=== PATIENT | male | born 1990 | race Caucasian/White ===

== ENCOUNTER 2018-07-10 13:49 | Emergency (ER) | payer OTHER ==
[~2018-07-10] VITALS: Ht 180.3 cm; Wt 99.8 kg
[2018-07-10] MEDS ORDERED: TRAMADOL 50 MG50 MG PO (14:53)
[2018-07-10] MEDS ORDERED: NAPROSYN500 MG PO (14:53)
[2018-07-10 15:13] VITALS: BP 127/67
== END 2018-07-10 15:14 | disposition home or self-care (01) ==
LOC: ER 13:49
DX: S90.32XA Contusion of left foot, initial encounter (principal); Z87.891 Personal history of nicotine dependence; Z88.1 Allergy status to other antibiotic agents; W10.9XXA Fall (on) (from) unspecified stairs and steps, initial encounter; Y93.89 Activity, other specified; Y92.89 Other specified places as the place of occurrence of the external cause; Y99.8 Other external cause status